=== PATIENT | female | born 1945 | race Caucasian/White ===

== ENCOUNTER 2019-02-01 09:11 | Outpatient (CLI) | payer MEDICARE, BC ==
--- NOTE | 2019-02-01 11:09 | BD ---
DEXA SCAN: 02/01/2019 PROVIDED CLINICAL HISTORY: Osteoporosis. FINDINGS: LUMBAR SPINE BMD (g/cm2) T-SCORE L1 1.031 0.4 L2 1.227 1.8 L3 1.215 1.2 L4 1.330 2.4 TOTAL 1.203 1.4 FEMORAL NECK 0.754 -0.9 TOTAL 0.997 0.5 Ten year fracture risk for major osteoporotic fracture 12% and hip fracture 2.1%. IMPRESSION: Normal bone mineral density. POS: [facility]
== END 2019-02-01 09:12 | disposition home or self-care (01) ==
LOC: BICMAMMO 09:11
PROVIDERS: ATTEND Internal Medicine Rheumatology
DX: M81.0 Age-related osteoporosis without current pathological fracture (principal)
CPT/HCPCS: 77080

== ENCOUNTER 2020-02-09 09:15 | Outpatient (CLI) | payer MEDICARE, BC ==
--- NOTE | 2020-02-09 09:46 | BD ---
EXAM: Bone densitometry using DEXA HISTORY: 74 yo female. Screening for postmenopausal osteoporosis FINDINGS: L1--bone mineral density 1.108 g/sq cm; T score 1.1 ; Z score 3.3 L2--bone mineral density 1.320 g/sq cm; T score 2.7 ; Z score 5.1 L3--bone mineral density 1.236 g/sq cm; T score 1.4 ; Z score 4.0 L4--bone mineral density 1.369 g/sq cm; T score 2.8 ; Z score 5.5 Total L1-L4--bone mineral density 1.261 g/sq cm; T score 1.9 ; Z score 4.4 Left femoral neck--bone mineral density0.762; T score -0.8 ; Z score 1.4 Total proximal left femur--bone mineral density 1.026; T score 0.7 ; Z score 2.6 There has been an interval increase of 4.8% in the BMD of the lumbar spine and a increase of 2.9% i n the BMD of the proximal left femur since the previous study of 02/01/2019. The 10 year fracture risk for a major osteoporotic fracture is 12% and for a hip fracture is 2.1%. IMPRESSION: Normal BMD
== END 2020-02-09 09:16 | disposition home or self-care (01) ==
LOC: BICMAMMO 09:15
PROVIDERS: ATTEND Internal Medicine Rheumatology
DX: M81.0 Age-related osteoporosis without current pathological fracture (principal)
CPT/HCPCS: 77080